=== PATIENT | male | born 1995 | race Caucasian/White ===

== ENCOUNTER 2018-06-14 13:20 | Emergency (ER) | payer OTHER ==
[2018-06-14] MEDS ORDERED: TDAP ADULT 0.5 ML INJ (BOOSTRIX) IM ONE (13:53)
--- NOTE | 2018-06-14 13:53 | EDPHY ---
General Time Seen by Provider: 06/14/18 13:44 Narrative: CHIEF COMPLAINT: Finger laceration HISTORY OF PRESENT ILLNESS: Patient presents per private vehicle with complaints of finger laceration. he states that he was at work just prior to arrival when he accidentally cut his left finger with a razor blade. He describes it as deep and somewhat painful. He has no difficulty bending or straightening the finger. No broken glass or debris. No injury to the remainder of the hand. Minimally painful with movement. Improved at rest. Does not radiate. No numbness or tingling Questionable tetanus status. Right-hand dominant TIME OF INJURY: Less than 1 hr prior to arrival TETANUS STATUS: Under certain MEDICAL/SURGICAL/SOCIAL HISTORY: Hiatal hernia, appendectomy. REVIEW OF SYSTEMS: Ten systems reviewed and are negative unless otherwise noted in the HPI EXAMINATION General Appearance: Alert, no distress Head: normocephalic, atraumatic Cardiovascular: Good signs of perfusion with symmetric radial pulses and brisk cap refill the fingers left hand Neurological: A&O, 2 point and light sensory symmetric, manager financial reporting and interossei strength symmetric Skin: Warm and dry, no rash. 2 cm laceration of the left index finger overlying radial of the joint just distal to the MCP. No pulsatile bleeding. No foreign body. No injury to the extensor tendon or underlying vasculature noted. Extremities: Tender in the area of the left index finger laceration. Range of motion of the hands and wrist symmetric including full extension, flexion and interossei move DIFFERENTIAL DIAGNOSES: Including but not limited to laceration, laceration tendon injury, laceration foreign body MDM: 1:50 p.m. Laceration to the left index finger as above without injury to the underlying tendon or vasculature noted. He is fully neuro intact. Range of motion intact. Brisk cap refill. I have administered a local anesthetic and we will irrigate and closed the wound. No indication for x-ray. Tetanus will be updated here. 2:30 p.m. Laceration has been repaired without difficulty. Range of motion is intact and symmetric to the right upper extremity. We discussed daily wound care. We discussed ED precautions. We discussed returning here in 7 days for suture removal. I have answered all his questions. He will contact his employer for worker's comp follow-up. Discharged home stable condition. PROCEDURE: Laceration repair Consent: Verbal Location: Left index finger Length of repair: 2 cm Complexity: Simple Layer involvement: Single Anesthesia: Local. 0.5% Marcaine without epinephrine, 5 mL Irrigation: Extensive Debridement: None Procedure description: Following good anesthesia, the wound was copiously irrigated. Wound bed was explored with a sterile glove, and there is no foreign body noted. No deep tissue structure injury. Wound borders were approximated well with good hemostasis. Tolerated well without complication. Suture/Staple material: 5-0 Ethilon, 3 simple interrupted sutures Wound care: Routine as discussed Suture/Staple removal: 7-10 Days SUPERVISION: This patient was independently evaluated without direct involvement of or examination by the attending physician. ED Precautions: Worsening pain. Erythema, edema, cyanosis, pallor, paresthesia or anesthesia. - History Smoking Status: Never smoked - Objective Vital Signs: Initial Vital Signs Temperature (C) 98.4 F 06/14/18 13:20 Heart Rate 68 06/14/18 13:20 Respiratory Rate 16 06/14/18 13:20 Blood Pressure 134/84 H 06/14/18 13:20 O2 Sat (%) 97 06/14/18 13:20 O2 Delivery Mode Room Air Allergies/Adverse Reactions: Iodinated Contrast- Oral and IV Dye Allergy (Verified 06/14/18 13:24) iodine Allergy (Verified 06/14/18 13:24) Home Medications: Medication Instructions Recorded NK [No Known Home Meds] 06/14/18 Medications Given: Discontinued Medications Diphtheria/Tetanus/Acell Pertussis (Boostrix) 0.5 ml IM .ONCE ONE Stop: 06/14/18 13:54 Last Admin: 06/14/18 14:03 Dose: 0.5 ml Departure - Departure Disposition: Home, Routine, Self-Care Clinical Impression: Laceration of index finger of left hand without complication Qualifiers: Encounter type: initial encounter Qualified Code(s): S61.211A - Laceration without foreign body of left index finger without damage to nail, initial encounter Condition: Good Instructions: Care For Your Stitches (ED), Laceration (ED) Additional Instructions: 1. Thin layer of bacitracin once daily for the next 2 days 2. Keep the wound covered while showering for the next 3 days 3. Daily wound care as discussed 4. Return here for suture removal in 7-10 days 5. Return here for signs of infection as discussed including warmth, redness, fever, drainage from the site 6. return here for increasing pain surrounding the laceration 7. Do not submerge the wound in any water, hot tub, swimming pool until sutures removed Referrals: [facility] [Other] - As per Instructions Physician,Emergency Dept, [Medical Doctor] - As per Instructions (7-10 days for suture removal) Stand Alone Forms: Work Comp Follow Up
[2018-06-14 14:48] VITALS: BP 108/77
== END 2018-06-22 15:31 | disposition home or self-care (01) ==
PROC: 0HQGXZZ Repair Left Hand Skin, External Approach (ICD-10-PCS; principal; 2018-06-14)
DX: S61.211A Laceration without foreign body of left index finger without damage to nail, initial encounter (principal); W26.8XXA Contact with other sharp object(s), not elsewhere classified, initial encounter; Y99.0 Civilian activity done for income or pay; Z23 Encounter for immunization